=== PATIENT | female | born 1965 | race Caucasian/White ===

== ENCOUNTER → 2016-07-17 | Day surgery (SDC) | payer OTHER ==
[2016-07-12 11:13] VITALS: Ht 155.6 cm; Wt 135.9 kg
[~2016-07-17] VITALS: Ht 155.6 cm; Wt 135.9 kg
[~2016-07-17] MED LIST: ACET-1311 PO; CALC500C70 PO; CHOL400T PO; CITA20TA4 PO; CLR10 PO; HYDR-3126 PO; LIDOCAINE HCL 2% 2 ML VIAL (20MG/ML) ONE; MELO7.5T5 PO; PROPOFOL IV EMULSION 10 MG/ML 20 ML VIAL IV ONE; SODIUM CHLORIDE 0.9% 500ML 500 ML IV ONE; TRMCR130WC EXT
--- NOTE | 2016-07-17 08:38 | Endo History and Physical ---
History & Physical Date of Service: Jul 17, 2016. Chief Complaint: dark stools, abd pain, GERD Referring Physician: Dr. Caryn Palmer History of Present Illness abdominal pain/dark stools/melena Past Medical History Arthritis, Anxiety, Reflux Past Surgical History Hx Cardiac Surgery: No Hx Internal Defibrillator: No Hx Pacemaker: No Hx Abdominal Surgery: Yes (C SECTIONS X 2, RUPAL) Hx of Implantable Prosthesis: No Hx Post-Op Nausea and Vomiting: No Hx Cancer Surgery: No Hx Thoracic Surgery: No Hx Orthopedic: Yes (RT/LEFT CTR, RT PARTIAL SHOULDER REPLACEMENT) Hx Urinary Tract Surgery: No Family History None Social History Smoking Status: Current Every Day Smoker Hx Substance Use: No Hx Alcohol Use: Yes (OCCASIONALLY) Allergies Coded Allergies: Latex1 -Allergic Contact Dermititis (Verified Allergy, Mild, RASH, 07/17/16 ) NO KNOWN DRUG ALLERGIES (Verified Allergy, Unknown, ., 07/12/16) Current Medications Reported Home Medications Medications Dose Route/Sig Max Daily Dose Days Date Category Claritin (Loratadine) 10 Mg Tab 10 Mg PO QAM 07/12/16 Reported Aristocort 0.1% (Triamcinolone Acet) 90 Appln/30 Gm Cr 1 Appln EXT DAILY 07/12/16 Reported Vitamin D (Cholecalciferol) 400 Unit Tab 2 Tab PO QAM 07/12/16 Reported Atarax (Hydroxyzine Hcl) 50 Mg Tab 50 Mg PO DIRECTED PRN 07/12/16 Reported Mobic (Meloxicam) 7.5 Mg Tab 7.5 Mg PO QAM 12/22/14 Reported Tylenol (Acetaminophen) 325 Mg Tab 650 Mg PO PRN 12/16/14 Reported Claritin (Loratadine) 10 Mg Tab 10 Mg PO QAM PRN 12/16/14 Reported Os-Fredi 500 Plus D (Calcium/Vitamin D) Tab 1 Tab PO QAM 12/16/14 Reported Citalopram Hydrobromide 20 Mg Tab 1 Tab PO QAM 90 12/16/14 Reported Vital Signs Weight (Kilograms): 135.91 Height (Feet): 5 Height (Inches): 1.25 Date Time Temp Pulse Resp B/P Pulse Ox O2 Delivery O2 Flow Rate FiO2 07/17/16 08:07 36.8 85 18 144/85 94 Room Air Physical Exam General Appearance: no apparent distress Respiratory/Chest: Auscultation: breath sounds normal Cardiovascular: Heart Auscultation: RRR Abdomen: Inspection & Palpation: soft, no masses Assessment and Plan stable for EGD/[place]
--- NOTE | 2016-07-17 09:39 | GI REPORT ---
Procedure Date: 07/17/2016 8:30 AM Procedure: Upper GI endoscopy Indications: Epigastric abdominal pain, Heartburn, Melena Medicines: See the Anesthesia note for documentation of the administered medications Complications: No immediate complications. Estimated Blood Loss: Estimated blood loss: none. Procedure: Pre-Anesthesia Assessment: - Prior to the procedure, a History and Physical was performed, and patient medications, allergies and sensitivities were reviewed. The patient's tolerance of previous anesthesia was reviewed. - The risks and benefits of the procedure and the sedation options and risks were discussed with the patient. All questions were answered and informed consent was obtained. - Patient identification and proposed procedure were verified prior to the procedure by the physician and the nurse. The procedure was verified in the pre-procedure area. - Pre-procedure physical examination revealed no contraindications to sedation. - After reviewing the risks and benefits, the patient was deemed in satisfactory condition to undergo the procedure. After obtaining informed consent, the endoscope was passed under direct vision. Throughout the procedure, the patient's blood pressure, pulse, and oxygen saturations were monitored continuously. The Scope was introduced through the mouth, and advanced to the third part of duodenum. The upper GI endoscopy was accomplished without difficulty. The patient tolerated the procedure well. Findings: LA Grade A (one or more mucosal breaks less than 5 mm, not extending between tops of 2 mucosal folds) esophagitis was found. The stomach was normal. The examined duodenum was normal. The cardia and gastric fundus were normal on retroflexion. Impression: - Mild reflux esophagitis. - Normal stomach. - Normal examined duodenum. - No specimens collected. Recommendation: - Perform a colonoscopy today. Alfred Regan M.D. Alfred Regan MD 07/17/2016 9:38:21 AM This report has been signed electronically. Note Initiated On: 07/17/2016 8:30 AM I attest to the content of the Intraoperative Record and orders documented therein, exceptions below
--- NOTE | 2016-07-17 09:40 | GI REPORT ---
Procedure Date: 07/17/2016 8:31 AM Procedure: Colonoscopy Indications: Screening for colorectal malignant neoplasm, Incidental - Melena Medicines: See the Anesthesia note for documentation of the administered medications Complications: No immediate complications. Estimated Blood Loss: Estimated blood loss: none. Procedure: Pre-Anesthesia Assessment: - See the other procedure note for documentation of the pre-procedure assessment. After I obtained informed consent, the scope was passed under direct vision. Throughout the procedure, the patient's blood pressure, pulse, and oxygen saturations were monitored continuously. The Scope was introduced through the anus and advanced to the cecum, identified by appendiceal orifice and ileocecal valve. The colonoscopy was performed without difficulty. The patient tolerated the procedure well. The quality of the bowel preparation was good. Findings: The perianal and digital rectal examinations were normal. The entire examined colon appeared normal on direct and retroflexion views. Impression: - The entire examined colon is normal on direct and retroflexion views. - No specimens collected. Recommendation: - Repeat colonoscopy in 10 years for screening purposes. - Discharge patient to home. Alfred Regan M.D. Alfred Regan MD 07/17/2016 9:39:22 AM This report has been signed electronically. Note Initiated On: 07/17/2016 8:31 AM I attest to the content of the Intraoperative Record and orders documented therein, exceptions below
--- NOTE | 2016-07-17 09:42 | Anesthesiology Progress Note ---
Anesthesia Post Op Note Date & Time Jul 17, 2016 at 09:41 Vital Signs Pain Intensity: 3 Vital Signs Past 12 Hours Date Time Temp Pulse Resp B/P Pulse Ox O2 Delivery O2 Flow Rate FiO2 07/17/16 09:38 75 20 142/79 96 Room Air 07/17/16 09:30 136/72 99 Room Air 07/17/16 09:23 81 20 101/70 99 10 07/17/16 08:07 36.8 85 18 144/85 94 Room Air Notes Mental Status: alert / awake / arousable, participated in evaluation Pt Amnestic to Procedure: Yes Nausea / Vomiting: adequately controlled Pain: adequately controlled Airway Patency, RR, SpO2: stable & adequate BP & HR: stable & adequate Hydration State: stable & adequate Anesthetic Complications: no major complications apparent
--- NOTE | 2016-07-17 09:43 | Discharge Instructions ---
Endoscopy Patient Instructions Date / Procedure(s) Performed Jul 17, 2016. Colonoscopy, EGD Allergy Information Coded Allergies: Latex1 -Allergic Contact Dermititis (Verified Allergy, Mild, RASH, 07/17/16 ) NO KNOWN DRUG ALLERGIES (Verified Allergy, Unknown, ., 07/12/16) Discharge Date / Findings Jul 17, 2016. Mild reflux disease Medication Instructions Stopped Medication(s): Patient was told she could take one of her meds but she couldn't remember so she didn't take any of them. Provider Instructions Activity Restrictions - No exercising or heavy lifting for 24 hours. - Do not drink alcohol the day of the procedure. - Do not drive a car or operate machinery until the day after the procedure. - Do not make any important decisions or sign important papers in 24 hours after the procedure. Following Day: - Return to full activity which may include returning to work/school. Diet Start your diet with liquids and light foods (jello, soup, juice, toast). Then eat your usual diet if not nauseated. Treatment For Common After Affects For mild abdominal pain, bloating, or excessive gas: - Rest - Eat lightly - Lie on right side Follow-Up Information Follow-up with Dr. Caryn Palmer as scheduled Anesthesia Information What You Should Know You have had a procedure that required some medicine to reduce anxiety and discomfort. This treatment is called moderate sedation. After receiving the treatment, you may be sleepy, but you will be able to breathe on your own. The effects of the treatment may last for several hours. Follow these instructions along with Activity/Diet recommendations noted above: * Do NOT do anything where dizziness or clumsiness would be dangerous. * Rest quietly at home today, then you can be up and about tomorrow. * Have a responsible person stay with you the rest of today. * You may have had an I.V. today. If so, you may take the dressing off later today. Recommendations Call your doctor if: * Trouble breathing * Continuous vomiting for more than 24 hours * Temperature above 101 degrees * Severe abdominal pain or bloating * Pain not relieved by pain medicine ordered * There is increased drainage or redness from any incision * A large amount of rectal bleeding greater than 2-3 tablespoons. (If you had a polyp/s removed or have hemorrhoids, a small amount of blood - from the rectum is to be expected.) * You have any unanswered questions or concerns. IN THE EVENT OF A SERIOUS EMERGENCY, GO TO THE NEAREST EMERGENCY ROOM Your discharge instructions were prepared by provider Alfred Regan. Patient Instructions Signature Page Leandra Lamar Patient (or Guardian) Signature/Date: I have read and understand the instructions given to me by my caregivers. Caregiver/RN/Doctor Signature/Date: The above-named patient and/or guardian has received patient instructions on this date. + Original Patient Signature Page (only) stays with chart. Please make copy for patient.
[2016-07-17 10:05] VITALS: BP 156/90; PULSE 75; O2SAT 97
== END | disposition home or self-care (01) ==
LOC: C.GI 07:31
PROVIDERS: ATTEND Internal Medicine Gastroenterology
DX: Z12.11 Encounter for screening for malignant neoplasm of colon (principal); R10.13 Epigastric pain; R12 Heartburn; K21.9 Gastro-esophageal reflux disease without esophagitis; F17.200 Nicotine dependence, unspecified, uncomplicated; K92.1 Melena; K20.9 Esophagitis, unspecified

== ENCOUNTER → 2016-10-15 | Outpatient (CLI) | payer OTHER ==
[~2016-10-15] MED LIST changes: -LIDOCAINE HCL 2% 2 ML VIAL (20MG/ML) ONE; -PROPOFOL IV EMULSION 10 MG/ML 20 ML VIAL IV ONE; -SODIUM CHLORIDE 0.9% 500ML 500 ML IV ONE
--- NOTE | 2016-10-16 05:39 | PAP/PSG TECHNICIAN REPORT ---
[facility] Public Health Policy Analyst Polysomnogram Report Study name: None Report date: 10/16/2016 Study date: 10/15/2016 Referring Physician: Antonette Whitley M.D. Name: DAMIEN LAMAR Interpreting Physician: Kiara Whitley M.D. Date of : 1965 Public Health Policy Analyst: EVELYN Cooper. Sex: Female Age: 51 StudyType: PSG Weight: 307 lbs Height: 51 years, Height 5' 2" Neck Circum:17.5inches BMI: 56.14 Medications: Meloxicam 15mg, Celexa 20mg, Atarax 10mg, Tylenol 325mg, Vit D 400units, Loratadine 10mg Patient History Study started on room air with ETCO2 monitoring in room #8. 51 yr old female here tonight for a possible split psg. She has a history of JOSELINE. She had a psg done in 2008 that had an AHI of 5.1 She was not treated. She has gained about 25 pounds since then and is snoring loudly. She falls asleep at inappropriate times and never feels rested. Her ESS=18/24.Neck Circ=17.5inches She started with a URI of last week (10-11-16) and she has been coughing and wheezing. Parameters Monitored NPSG: E1-M2, E2-M1, Fp1-M2, Fp2-M1, F3-M2, F4-M2, F4-M1, C3-M2, C4-M2, C4-M1, O1-M2, O2-M2, O2-M1, T3-M2, T4-M1, P3-M2, P4-M1, CHIN1, CHIN2, HR, EKG, Legs, PFLOW, SNOR, FLOW, CFLOW, Tidal Volume, THOR, ABDO, SpO2, PLTH, CPRESS, ETCO2 Wave, ETCO2, pH Sleep Architecture Sleep Stages Time at Lights Off 9:35:46 PM STAGES Time (min.) TST (%) Time at Lights On 5:29:16 AM Wake 83.0 -- Total Recording Time (TRT) 473.00 min. N1 13.5 3 Total Sleep Period (TSP) 444.5 min. N2 227.0 58 Total Sleep Time (TST) 390.0min. N3 99.5 26 Awake Time 83.0 min. REM 50.0 13 Wake after Sleep Onset 54.5 min. Sleep Efficiency (SE) 82 % Sleep Onset Latency (SHINE) 29.0 min. Number of Stage 1 Shifts None Awakenings 4 Stage Changes 58 Number of REM periods 5 REM 50.0 13 REM Latency 287.0 min. NREM 340.0 87 Body Position Analysis Supine Right Left Side Prone Vertical Total Sleep Time (min.) 27.3 383.0 7.0 390.00 0.0 0.0 Total Sleep Time (%) 0% 98% 2% 100 0% N/A% Total Sleep Time REM (min.) 0.0 50.0 0.0 None 0.0 0.0 Total Sleep Time NREM (min.) 0.0 333.0 7.0 None 0.0 0.0 Intermittent Wake (min.) 27.3 51.7 4.0 None 0.0 0.0 Total Sleep Period (%) 0% None None None None None Arousals Myoclonus (PLM) * Events Count Index Events Count Index Spontaneous 12 2 Events Awake (PLMW) 73 52.8 Respiratory 9 1.4 Events Asleep w/ Arousal (PLMA) 15 2.3 PLM 15 2 Events Asleep w/o Arousal (PLMS) 130 20.0 Snoring 10 2 Total Asleep 145 22.3 Total 46 7 Total 218 28 Respiratory Analysis * CA OA MA CH H RERA Total Count 0 1 0 0 88 0 89 Index 0.0 0.2 0.0 0 13.5 0 13.7 Mean Duration 0.0 10.2 0.0 0.00 15.3 0.0 15.3 Longest Duration 0.0 10.2 0.0 0.00 0.0 0.0 49.7 Respiratory Event Summary Total Supine ~Supine Right Left Prone REM NREM Apneas Count 1 N/A 1 1 0 N/A 1 0 Index 0.2 N/A 0 0.2 0.0 N/A 1 0 Hypopneas (4% Desat) Count 88 N/A 88 88 0 N/A 38 50 Index 13.5 N/A 14 13.8 0.0 N/A 45.6 8.8 Apneas & All Hypopneas Count 89 N/A 89 89 0 N/A 39 50 Index 13.7 N/A 14 14 0 N/A 46.8 8.8 Respiratory Events (Funeral Pre Arrangement Counselor+All Hyp+RERA) Count 89 N/A 89 89 0 N/A 39 50 Index 13.7 N/A 14 13.9 0.0 N/A 46.8 8.8 Respiratory Related Arousal Count 9 N/A 9 9 0 N/A 5 4 Index 1.4 N/A 1 1 0 N/A 6 1 Snoring Analysis Supine Right Left Prone REM NREM Total Snore duration 16.0 min Snores count N/A 905 6 N/A 157 754 911 Snore mean duration 1.1 Sec Snores index N/A 142 51 N/A 188.4 133.1 140.2 TST with snoring (%) 4.1% SpO2 Analysis Total REM NREM Awake <50% 0.0 min. 0.0 min. 0.0 min. 0.0 min. 51 - 60% 0.0 min. 0.0 min. 0.0 min. 0.0 min. 61 - 70% 1.1 min. 0.8 min. 0.3 min. 0.0 min. 71 - 80% 23.0 min. 22.4 min. 0.6 min. 0.0 min. 81 - 90% 421.1 min. 26.7 min. 335.0 min. 59.4 min. 91 - 100% 2.3 min. 0.0 min. 0.3 min. 2.1 min. Average 86 81 86 87 Minimum SpO2 63 63 69 81 Desaturation Event Index 24.7 93.6 19.4 6.5 # Desat. Events below 89% 195 77 109 9 Time(%) with Saturation below 89% 95.2 11.1 74.3 9.8 Time(min.) with Saturation below 89% 426.0 49.8 332.4 43.8 Heart Rate Analysis End Tidal CO2 Analysis Min (bpm) Max (bpm) Average (bpm) TSP (mins) % of TSP Awake 66 145 84 Above 55 mmHg 2.9 0.7 NREM 68 107 84 50-55 mmHg 130.3 33.4 REM 70 94 81 45-50 mmHg 190.4 48.8 Overall 68 107 83 40-45 mmHg 19.2 4.9 35-40 mmHg 12.3 3.2 30-35 mmHg 18.1 4.6 Average ETCO2 0.0 Supplemental O2 Values Minimum O2 level: None Value Start Time End Time Public Health Policy Analyst Comments Ms. Lamar slept in the right, left and supine positions. No cardiac arrhythmia noted. PLM's noted. No bruxism noted. Snoring was noted and scored as a 5 on a scale of 1 through 5. (0=no snoring, 5=snoring loud enough to be heard through a closed door or down the hooper way) She awoke to use the restroom 1 time during the night. She stated that she slept about the same as when at home. The final report will be interpreted and signed by a sleep physician. The completed physician report will then be placed in the patient medical record. Therapy (cm H2O) 0 TIB (min.) 473.0 TST (min.) 390.0 Sleep Onset (min.) 29.0 REM Onset From Sleep (min.) 287.0 Sleep Efficiency % 82 Wakefulness (%) 18 Wakefulness (min.) 83.0 NREM 1 (%) 3 NREM 1 (min.) 13.5 NREM 2 (%) 58 NREM 2 (min.) 227.0 NREM 3 (%) 26 NREM 3 (min.) 99.5 REM (%) 13 REM (min.) 50.0 # Arousals 46 Arousal Index 7 # Snore 911 Snore Index 140.2 AHI 13.7 AHI Supine N/A AHI Non-Supine 14 NREM AHI 8.8 REM AHI 46.8 RDI 13.7 # Obstructive Apnea 1 # Central Apnea 0 # Mixed Apnea 0 # Hypopneas 88 RERAs 0 Total Respiratory Events 92 Time Below SpO2 89% (min.) 382.2 Mean NREM SpO2 (%) 86 Mean REM SpO2 (%) 81 Mean Sleep SpO2 (%) 85 Min NREM SpO2 (%) 69 Min REM SpO2 (%) 63 Position Supine (min.) 27.3 Position Non-supine (min.) 390.0 LM Index Sleep 22.3 LM Index NREM 22.6 LM Index REM 20.4 Mean Heart Rate (bpm) 83 Min Heart Rate (bpm) 68
--- NOTE | 2016-11-06 09:56 | POLYSOMNOGRAPH REPORT ---
REFERRING PERSON: Dr. Ryan Whitley. REAL ESTATE PORTFOLIO MANAGER: Ana Oseguera. Ms. Lamra is a 51-year-old female sent for baseline sleep study, possible split night sleep study. This test will be performed with an end-tidal CO2 to monitor her for obesity hypoventilation. She has a history of obstructive sleep apnea with PSG done in 2008, which showed an AHI of 5.1. She was not treated at that time and has gained 25 pounds since then. She does snore loudly. She falls asleep when idle and never feels rested. Her [place] sleepiness scale score on the evening of this study is 18. BMI is a 56.14. Following the technical and digital specifications of the [employer] (AASM) a standard diagnostic polysomnogram was performed monitoring EEG, EOG, EMG (chin and leg deviations), oxygen saturation, body position, digital video, respiratory effort and airflow. The sleep Stage and event scoring was based on the AASM Manual for the Scoring of Sleep and Associated Events 2007 edition. Apneas are defined as a drop in the peak thermal sensor excursion by >90% of baseline for at least 10 seconds. Hypopneas were scored using the 4% oxygen desaturation rule (4A-Medic[employer]) and a decrease in the nasal pressure excursions by >30% of baseline for at least 10 seconds. Respiratory effort-related arousal (RERA's) is defined as a sequence of breaths lasting at least 10 seconds characterized by increasing respiratory effort or flattening of the nasal pressure waveform leading to an arousal from sleep when the sequence of breaths does not meet criteria for an apnea or hypopnea. Apnea Hypopnea index (AHI) is defined as the number of apneas and hypopneas occurring in an hour of sleep. Respiratory disturbance index (RDI) is defined as the number of apneas, hypopneas, and RERA's occurring in an hour of sleep. Ms. Lamar's total sleep period time was 444.5 minutes. Total sleep time was 390 minutes. Sleep efficiency was 82%. Latency to sleep onset was 29 minutes with wake after sleep onset of 54.5 minutes. Total non-REM sleep time was 340 minutes. She spent 3% of that time in N1 sleep, 58% in N2 sleep and 26% in N3 sleep. REM latency was 287 minutes. Total REM sleep time was 50 minutes or 13% of total sleep time. There were 46 cortical arousals from sleep. Twelve of these arousals were spontaneous, 9 were due to respiratory events, 15 due to periodic limb movements of sleep and 10 were due to snoring. There were 145 periodic limb movements of sleep noted on this test. Limb movement index was 22.3. Limb movement with arousal index was 2.3. There were no central, 1 obstructive and no mixed apnea on this test. There were 88 hypopneas and no RERA. Apnea-hypopnea index was 13.7 consistent with mild sleep apnea. There was no supine sleep on this test. REM AHI was 46.8. 911 snoring events were recorded. Total sleep time with snoring was 4.1%. Mean saturation was low at 86%. Desaturations occurred to 63% with a respiratory event on this test. Saturations were less than 89 for 426 minutes of recorded time. This is very significant nocturnal hypoxemia. There was no cardiac ectopy noted on this study. During sleep, heart rates ranged from a low of 68 beats per minute to a high of 107 beats per minute. End-tidal CO2 was recorded on this test. End tidal CO2s were between 50 and 55 mmHg for 33.4% of total sleep period time, between 45 and 50 mmHg for 48.8%, between 40 and 45 mmHg for 4.9%, between 35 and 40 mmHg for 3.2% and between 30 and 35 mmHg for 4.6% of total sleep period time. IMPRESSION AND PLAN: Ms. Lamar is a 51-year-old female with evidence of mild sleep apnea with very significant nocturnal hypoxemia on this sleep study. 1. This patient would likely benefit from positive airway pressure therapy. She should return to the sleep lab for a full night titration and then based on those results be started on equipment at home. A download from her machine can be reviewed in 1 month both to check compliance as well as AHI and further pressure adjustments can occur at that time. This patient may require nocturnal oxygen in addition to positive airway pressure therapy to correct her hypoxemia.
== END | disposition home or self-care (01) ==
LOC: C.NEUR 21:00
PROVIDERS: ATTEND Family Medicine
DX: G47.33 Obstructive sleep apnea (adult) (pediatric) (principal); E66.01 Morbid (severe) obesity due to excess calories

== ENCOUNTER → 2017-05-16 | Outpatient (CLI) | payer OTHER | END | disposition home or self-care (01) | LOC: C.PAPS 11:51 | PROVIDERS: ATTEND Obstetrics & Gynecology | DX: Z01.419 Encounter for gynecological examination (general) (routine) without abnormal findings (principal) ==

== ENCOUNTER 2019-04-04 19:17 | Observation (INO) ==
[2019-04-04] MEDS ORDERED: ASPIRIN CHEW 324 MG PO STA (19:30)
[2019-04-04 19:45] LABS: Basophils # (auto) 0.03 K/uL (0-0.2); Basophils % (auto) 0.2 %; Eosinophils # (auto) 0.15 K/uL (0-0.5); Eosinophils % (auto) 0.9 %; Hematocrit (blood only) 40.5 % (37-47); Hemoglobin 12.8 g/dL (12.0-16.0); Immature Granulocytes # (auto) 0.07 K/uL (0.00-0.02); Immature Granulocytes % (auto) 0.4 %; Lymphocytes # (auto) 3.52 K/uL (1.2-3.4); Lymphocytes % (auto) 21.3 %; Mean Corpuscular Hgb Conc 31.6 g/dL (32-36); Mean Corpuscular Volume 95.1 fL (80-100); Mean Platelet Volume 9.4 fL (7.4-10.4); Monocytes # (auto) 1.13 K/uL (0.11-0.59); Monocytes % (auto) 6.9 %; Neutrophils # (auto) 11.59 K/uL (1.4-6.5); Neutrophils % (auto) 70.3 %; Platelet Count 222 K/uL (130-400); RDW Coefficient of Variation 13.1 % (11.5-14.5); Red Blood Count 4.26 M/uL (4.2-5.4); White Blood Count 16.49 K/uL (4.8-10.8)
[2019-04-04 19:58] LABS: D Dimer 390 ug/L FEU (0-500); Partial Thromboplastin Time 26.7 Seconds (21.0-31.0); Prothrombin Time 10.3 Seconds (9.0-12.0)
[2019-04-04 20:08] LABS: Alanine Aminotransferase 15 U/L (12-78); Albumin Level 3.1 gm/dl (3.4-5.0); Aspartate Aminotransferase 15 U/L (15-37); BUN Creatinine Ratio 10.9 (10-20); Bilirubin Direct < 0.1 mg/dl (0-0.2); Blood Urea Nitrogen 9 mg/dl (7-18); Calcium 8.6 mg/dl (8.5-10.1); Carbon Dioxide 28 mmol/L (21-32); Chloride 109 mmol/L (98-107); Creatinine Clr Calc Pharmacy 105.4 ml/min; Est GFR (African American) 96.1; Est GFR (Non-African American) 82.9; Glucose 102 mg/dl (70-99); Lipase 151 U/L (73-393); Potassium 3.7 mmol/L (3.5-5.1); Sodium 140 mmol/L (136-145)
[2019-04-04 20:13] LABS: Alkaline Phosphatase 94 U/L (45-117); Bilirubin,Total 0.2 mg/dl (0.2-1); Total Protein 7.3 gm/dl (6.4-8.2); Troponin I < 0.015 ng/ml (0-0.045)
--- NOTE | 2019-04-04 20:21 | XRay Report ---
CHEST AND ABDOMEN 2 VIEWS HISTORY: epigastric pain COMPARISON: Chest 01/06/2015. FINDINGS: No new focal lung consolidations to suggest pneumonia. No evidence for pulmonary edema. The heart remains mildly enlarged. No pleural effusions. No pneumothorax. A right shoulder prosthesis is again noted. Increased markings within the right medial lung base likely represents vascular crowdin g. Prior cholecystectomy. No pneumoperitoneum. No pneumatosis. No renal or ureteral calculi. The nick l gas pattern is unremarkable. No dilated loops of bowel to suggest an obstruction. IMPRESSION: 1. Stable mild cardiomegaly. 2. Unremarkable bowel gas pattern. No evidence for bowel obstruction. ACT 112: Negative or not required by law. Electronically signed by: Sebastian Wills M.D. 04/04/2019 8:20 PM
--- NOTE | 2019-04-04 21:27 | Emergency Department Note ---
Entered by Sheryl Stanley acting as a scribe for Adán Lamb History of Present Illness General Chief complaint: Chest Pain Stated complaint: CHEST PAIN Time Seen by Provider: 04/04/19 19:23 History of Present Illness Provider complaint: chest pain Onset (ago): day(s) 1 Location: chest Radiation: non-radiation Pain Consistency: + intermittent Maximum Pain Intensity: 4 Current Pain Intensity: 2 Relieved By: + other (lying down) Exacerbated By: + other (stress) Associated symptoms: + denies other symptoms (recent travel, recent surgeries, hormone pill/cream use) and + other (feels like anxiety); no shortness of breath The patient is a 53 year old female who presents to the ED with complaints of intermittent chest pain that started 1 day ago. The patient states that the pain is in the middle of her chest and it is non-radiating. The patient rates her current pain as a 2/10. The patient states that when she had this pain yesterday, it resolved after lying down. The patient states that the pain returned today after a stressful phone call. The patient states that her discomfort feels similar to anxiety. The patient notes that she is a smoker, but she denies shortness of breath, recent travel, recent surgeries and hormone pill/cream use. The patient notes that she also has right rib cramping that sta rted 1 week ago. Home Medications Home Medications Medication Instructions Recorded Confirmed Type calcium carbonate 600 mg (1,500 1 tab PO QAM tab 01/04/19 04/04/19 History mg)-vitamin D3 200 unit tablet BiPap Machine #1 ea 01/29/19 03/17/19 History cholecalciferol (vitamin D3) 1,000 unit PO QAM 02/06/19 04/04/19 History [Vitamin D3] hydroxyzine HCl 10 mg PO QID PRN 02/06/19 04/04/19 History meloxicam 15 mg PO QAM 02/06/19 04/04/19 History citalopram 40 mg PO DAILY 04/04/19 04/04/19 History modafinil 200 mg PO DAILY PRN 04/04/19 04/04/19 History Allergies Allergy/AdvReac Type Severity Reaction Status Date / Time latex Allergy Mild RASH Verified 04/04/19 19:52 No Known Drug Allergies Allergy Unknown . Verified 04/04/19 19:52 Past Med/Surg History Medical History (Updated 04/04/19 @ 21:24 by Sheryl Stanley) Abnormal vaginal bleeding Anxiety Arthritis Depression (Acute) DJD (degenerative joint disease) (Chronic) Fatigue (Acute) History of postmenopausal bleeding (Acute) Morbid obesity Secondary amenorrhea (Acute) Sleep apnea BIPAP Tobacco abuse (Chronic) Surgical History (Updated 04/04/19 @ 20:11 by Sheryl Stanley) History of (Resolved) History of carpal tunnel release of both wrists History of carpal tunnel surgery (Chronic) Hx of section X2 Hx of cholecystectomy (Resolved) Hx of cholecystectomy Hx of colonoscopy Hx of shoulder surgery Right shoulder arthroplasty (partial): 01/06/15: Grade I view, MAC#3, ETT 7.5 at [facility] Social History (Updated 03/14/19 @ 10:29 by Fabiola Rios) Preferred Language: Lithuanian Communication Ability: Effective Beliefs That Will Affect Care: None marital status: Current Living Situation: Family Current Living Situation Comment: DAUGHTER HAS DISABILITY - DOWNS SYNDROME Feels Safe at Home: Yes Smoking Status: Never smoker Tobacco Type: cigarettes ; Cigarettes Per Day: 1 PPD X 30 YEARS ; Second Hand Exposure: Yes (OCCASSIONALLY) ; Hx Alcohol Use: Yes Hx Substance Use: No Review of Systems See HPI for pertinent positives & negatives. and A total of 10 systems reviewed and were otherwise negative Physical Exam Vital Signs Vital Signs - 24 hr 04/04/19 19:19 04/04/19 19:28 04/04/19 19:30 Temperature 36.7 C Temperature Source Oral Pulse Rate 80 75 72 Pulse Rate from SpO2 Sensor Respiratory Rate 16 22 24 Respiratory Effort / Characteristics Non-Labored Spontaneous Respiratory Depth Normal Respiratory Pattern Regular Blood Pressure 153/88 H Blood Pressure Mean 109 Blood Pressure Position Sitting Pulse Oximetry 95 Oxygen Delivery Method Room Air Sepsis Recent Fever Within 48 Hours No Sepsis Action Taken by Nursing No Action Required 04/04/19 19:40 04/04/19 19:50 04/04/19 19:59 Temperature Temperature Source Pulse Rate 71 71 Pulse Rate from SpO2 Sensor Respiratory Rate 21 22 Respiratory Effort / Characteristics Respiratory Depth Respiratory Pattern Blood Pressure Blood Pressure Mean Blood Pressure Position Pulse Oximetry 97 Oxygen Delivery Method Room Air Sepsis Recent Fever Within 48 Hours Sepsis Action Taken by Nursing 04/04/19 20:13 04/04/19 20:14 04/04/19 20:20 Temperature Temperature Source Pulse Rate 63 64 65 Pulse Rate from SpO2 Sensor 65 65 Respiratory Rate 20 22 24 Respiratory Effort / Characteristics Respiratory Depth Respiratory Pattern Blood Pressure 126/65 Blood Pressure Mean 84 Blood Pressure Position Pulse Oximetry 96 96 Oxygen Delivery Method Sepsis Recent Fever Within 48 Hours Sepsis Action Taken by Nursing 04/04/19 20:30 04/04/19 20:31 04/04/19 20:40 Temperature Temperature Source Pulse Rate 67 64 66 Pulse Rate from SpO2 Sensor 67 66 64 Respiratory Rate 14 18 18 Respiratory Effort / Characteristics Respiratory Depth Respiratory Pattern Blood Pressure 142/91 H Blood Pressure Mean 123 Blood Pressure Position Pulse Oximetry 97 96 96 Oxygen Delivery Method Sepsis Recent Fever Within 48 Hours Sepsis Action Taken by Nursing 04/04/19 20:50 Temperature Temperature Source Pulse Rate 64 Pulse Rate from SpO2 Sensor 64 Respiratory Rate 16 Respiratory Effort / Characteristics Respiratory Depth Respiratory Pattern Blood Pressure Blood Pressure Mean Blood Pressure Position Pulse Oximetry 96 Oxygen Delivery Method Sepsis Recent Fever Within 48 Hours Sepsis Action Taken by Nursing GENERAL: She is oriented to person, place, and time. She appears well-developed and well-nourished. She does not appear distressed. The patient is obese. HENT: Exam performed. -Head: Normocephalic and atraumatic. -Right Ear: External ear normal. No mastoid tenderness. -Left Ear: External ear normal. No mastoid tenderness. -Mouth/Throat: The oropharynx is clear and moist. No trismus in the jaw. No dental abscesses or uvula swelling. No oropharyngeal exudate or tonsillar abscesses. EYES: Conjunctivae and EOM are normal. Pupils are equal, round, and reactive to light. Right eye exhibits no discharge. Left eye exhibits no discharge. No scleral icterus. NECK: Normal range of motion. Neck supple. No JVD present. No spinous process tenderness present. No carotid bruit present. No rigidity. No tracheal deviation and normal range of motion present. No Brudzinski's sign and no Kernig's sign noted. CV: Normal rate, regular rhythm, normal heart sounds and intact distal pulses. There is no peripheral edema. Palpable radial pulses bue. PULM/CHEST: Effort normal and breath sounds normal. No respiratory distress. No stridor. She has no wheezes. She has no rales. Chest Wall: She exhibits no tenderness. ABD: Pain to palpation of epigastric region. The abdomen is soft. Bowel sounds are normal. She has no distension. No mass is present. There is no rebound, no guarding, no Hollingsworth's sign and no tenderness at McBurney's point. Rovsig negative MUSC/SKEL: Normal range of motion. There is no peripheral edema, tenderness or deformity. LYMPH: No cervical adenopathy. NEURO: She is alert and oriented to person, place, and time. She has normal strength. No cranial nerve deficit or sensory deficit. Coordination and gait normal. GCS eye subscore is 4. GCS verbal subscore is 5. GCS motor subscore is 6. cerbellar tests wnl. SKIN: Skin is warm and dry. She is not diaphoretic. PSYCH: She has a normal mood and affect. Her behavior is normal. Judgment and thought content normal. Course Course 1924: Past medical records reviewed. The patient was evaluated in room C05. A complete history and physical exam was performed. 2108: Vital signs stable. Labs show leukocytosis of 16. Troponin, D-dimer and ac aisha abdominal series are negative. Repeat abdominal exam shows no pain to palpation. Patiently currently reporting no chest pain. I offered inpatient observation for a repeat troponin or discharge. They opted for inpatient observation because of the patients age, weight and smoking history. I dis cussed the patient's case with Dr. Leon Dee. He will evaluate the patient for further management. Consultations Consultation #1: I discussed the patient's case with Dr. Leon Dee. He will evaluate the patient for further management. Time: 21:15 Administered Medications Discontinued Medications Aspirin (Aspirin) 324 mg PO NOW STA Stop: 04/04/19 19:31 Last Admin: 04/04/19 19:42 Dose: 324 mg Documented by: [id number] Medical Decision Making Medical Records Attestation: I reviewed the patient's medical records. Home Medications Current Medication List: was personally reviewed by me Laboratory Data Attestation: I reviewed the patient's lab results. Result diagrams: 04/04/19 19:35 04/04/19 19:35 Lab Results 04/04/19 04/04/19 04/04/19 Range/Units 19:35 19:35 19:35 WBC 16.49 H (4.8-10.8) K/uL RBC 4.26 (4.2-5.4) M/uL Hgb 12.8 (12.0-16.0) g/dL Hct 40.5 (37-47) % MCV 95.1 (80-100) fL MCH 30.0 (25-34) pg MCHC 31.6 L (32-36) g/dL RDW Std Deviation 45.0 (36.4-46.3) fL RDW Coeff of Susanne 13.1 (11.5-14.5) % Plt Count 222 (130-400) K/uL MPV 9.4 (7.4-10.4) fL Immature Gran % (Auto) 0.4 % Neut % (Auto) 70.3 % Lymph % (Auto) 21.3 % [place] % (Auto) 6.9 % Eos % (Auto) 0.9 % Baso % (Auto) 0.2 % Immature Gran # (Auto) 0.07 H (0.00-0.02) K/uL Neut # (Auto) 11.59 H (1.4-6.5) K/uL Lymph # (Auto) 3.52 H (1.2-3.4) K/uL [place] # (Auto) 1.13 H (0.11-0.59) K/uL Eos # (Auto) 0.15 (0-0.5) K/uL Baso # (Auto) 0.03 (0-0.2) K/uL PT 10.3 (9.0-12.0) Seconds INR 1.0 (0.9-1.1) APTT 26.7 (21.0-31.0) Seconds PTT Ratio 1.0 D-Dimer 390 (0-500) ug/L FEU Sodium 140 (136-145) mmol/L Potassium 3.7 (3.5-5.1) mmol/L Chloride 109 H (98-107) mmol/L Carbon Dioxide 28 (21-32) mmol/L Anion Gap 4.0 (3-11) BUN 9 (7-18) mg/dl Creatinine 0.81 (0.6-1.2) mg/dl Est Cr Clr Drug Dosing 105.4 ml/min Est GFR ( Amer) 96.1 Est GFR (Non-Af Amer) 82.9 BUN/Creatinine Ratio 10.9 (10-20) Glucose 102 H (70-99) mg/dl Calcium 8.6 (8.5-10.1) mg/dl Total Bilirubin 0.2 (0.2-1) mg/dl Direct Bilirubin < 0.1 (0-0.2) mg/dl AST 15 (15-37) U/L ALT 15 (12-78) U/L Alkaline Phosphatase 94 (45-117) U/L Troponin I < 0.015 (0-0.045) ng/ml Total Protein 7.3 (6.4-8.2) gm/dl Albumin 3.1 L (3.4-5.0) gm/dl Lipase 151 (73-393) U/L Imaging Data Radiologist's Impression: Radiology results as stated below per my review and the radiologist's interpretation: CHEST AND ABDOMEN 2 VIEWS HISTORY: epigastric pain COMPARISON: Chest 01/06/2015. FINDINGS: No new focal lung consolidations to suggest pneumonia. No evidence for pulmonary edema. The heart remains mildly enlarged. No pleural effusions. No pneumothorax. A right shoulder prosthesis is again noted. Increased markings within the right medial lung base likely represents vascular crowding. Prior cholecystectomy. No pneumoperitoneum. No pneumatosis. No renal or ureteral calculi. The bowel gas pattern is unremarkable. No dilated loops of bowel to suggest an obstruction. IMPRESSION: 1. Stable mild cardiomegaly. 2. Unremarkable bowel gas pattern. No evidence for bowel obstruction. ACT 112: Negative or not required by law. Electronically signed by: Sebastian Wills M.D. 04/04/2019 8:20 PM ECG Data Attestation: I personally reviewed and interpreted this ECG as follows: Indication: + chest pain Rate (beats per minute): 71 Rhythm: + sinus rhythm ECG Intervals/blocks: + Normal QRS, + Normal MO and + Normal QT-c ECG ST segments: no ST depression and no ST elevation Blood Pressure Blood Pressure Findings: Elevated blood pressure Blood Pressure Disposition: further management by hospitalist [facility] Narrative Vital signs stable. Labs show leukocytosis of 16. Troponin, D-dimer and acute abdominal series are negative. Repeat abdominal exam shows no pain to palpation. Patiently currently reporting no chest pain. I offered inpatient observation for a repeat troponin or discharge. They opted for inpatient observation because of the patients age, weight and smoking history. I discussed the patient's case with Dr. Leon Quintana Hospitalist. He will evaluate the patient for further management. Impression & Plan Chest pain Discharge Plan Visit Data Chief Complaint: Chest Pain Stated Complaint: CHEST PAIN ED Provider: Adán Lamb Discharge Problem: Chest pain Patient Disposition: Being Evaluated by Hospitalist Forms Stand Alone Forms: Call Back Authorization, My [facility] Prescriptions Prescriptions: No Action calcium carbonate-vitamin D3 600 mg(1,500mg) -200 unit tablet 1 tab PO QAM RF: 0 (DME) BiPap Machine Misc See Dose Instructions .ROUTE .MEDSUPPLY Qty: 1 RF: 0 cholecalciferol (vitamin D3) [Vitamin D3] 1,000 unit Capsule 1,000 unit PO QAM RF: 0 meloxicam 15 mg Tablet 15 mg PO QAM RF: 0 hydroxyzine HCl 10 mg Tablet 10 mg PO QID PRN (Reason: Itching) RF: 0 citalopram 40 mg tablet 40 mg PO DAILY RF: 0 modafinil 200 mg tablet 200 mg PO DAILY PRN (Reason: Daylight Sleepiness Symptoms) RF: 0 Referrals Referrals: Caryn Palmer, [Primary Care Provider] - Discharge Problem: Chest pain Qualifiers: Chest pain type: unspecified Qualified Code(s): R07.9 - Chest pain, unspecified The scribe's documentation has been prepared under my direction and personally reviewed by me in its entirety. I confirm that the note above accurately reflects all work, treatment, procedures, and medical decision making performed by me.
[2019-04-04] MEDS ORDERED: NITROGLYCERIN SL 0.4 MG/TAB TAB SL STA (21:54)
--- NOTE | 2019-04-04 21:55 | History & Physical Report ---
Date of Service April 04, 2019 Assessment & Plan (1) Chest pain: With nitro relief Rule out ACS OHS on BiPAP GERD stable on regimen anxiety/mood disorder, anxiety somewhat worsened of late with work stress ongoing tobacco abuse OBS PCU Follow troponin TTE, Cardiology consult in a.m. RE chest pain relieved by nitro Aspirin for CAD prevention until ACS ruled out Anxiolytic PRN nicotine patch PRN DVT prophylaxis. Lovenox subcu Full code History of Present Illness Chief Complaint: Chest pain Primary Care Provider: Caryn Palmer DO History obtained from patient and records. Medical history significant for OHS on BiPAP, GERD, anxiety/mood disorder, ongoing tobacco abuse. Recent confinement under orthopedic service December 2014 for right shoulder surgery. 2 days history of substernal discomfort described as heaviness with some shortness of breath, nonpleuritic, dry cough symptoms. No radiation. Intermittent symptoms. Not related to exertion as per patient. Patient admits to some work stress more than usual. At the ER, some improvement of discomfort with nitro administration. Medical History as above Surgical History : Carpal tunnel surgery, cholecystectomy, shoulder surgery, section Family History : Heart disease, Down syndrome Personal/Social history : 1 pack daily, occasional EtOH intake, office work Allergies Allergy/AdvReac Type Severity Reaction Status Date / Time latex Allergy Mild RASH Verified 04/04/19 19:52 No Known Drug Allergies Allergy Unknown . Verified 04/04/19 19:52 Home Medications Home Medications Medication Instructions Recorded Confirmed Type calcium carbonate 600 mg (1,500 1 tab PO QAM tab 01/04/19 04/04/19 History mg)-vitamin D3 200 unit tablet BiPap Machine #1 ea 01/29/19 03/17/19 History cholecalciferol (vitamin D3) 1,000 unit PO QAM 02/06/19 04/04/19 History [Vitamin D3] hydroxyzine HCl 10 mg PO QID PRN 02/06/19 04/04/19 History meloxicam 15 mg PO QAM 02/06/19 04/04/19 History citalopram 40 mg PO DAILY 04/04/19 04/04/19 History modafinil 200 mg PO DAILY PRN 04/04/19 04/04/19 History Past Med/Surg History Medical History (Updated 04/04/19 @ 21:24 by Sheryl Stanley) Abnormal vaginal bleeding Anxiety Arthritis Depression (Acute) DJD (degenerative joint disease) (Chronic) Fatigue (Acute) History of postmenopausal bleeding (Acute) Morbid obesity Secondary amenorrhea (Acute) Sleep apnea BIPAP Tobacco abuse (Chronic) Surgical History (Updated 04/04/19 @ 20:11 by Sheryl Stanley) History of (Resolved) History of carpal tunnel release of both wrists History of carpal tunnel surgery (Chronic) Hx of section X2 Hx of cholecystectomy (Resolved) Hx of cholecystectomy Hx of colonoscopy Hx of shoulder surgery Right shoulder arthroplasty (partial): 01/06/15: Grade I view, MAC#3, ETT 7.5 at [facility] Social History (Updated 03/14/19 @ 10:29 by Fabiola Rios) Preferred Language: Telugu Communication Ability: Effective Social Media Specialist Required: No Beliefs That Will Affect Care: None marital status: Current Living Situation: Family Current Living Situation Comment: DAUGHTER HAS DISABILITY - DOWNS SYNDROME Other Information That Helps Us Care for You: No Feels Safe at Home: Yes Safety Concerns: Feels Safe At This Time Smoking Status: Former smoker Tobacco Type: cigarettes ; Cigarettes Per Day: 1 PPD X 30 YEARS ; Do You Dip or Chew Tobacco: No ; Second Hand Exposure: No ; Tobacco Cessation Education Requested by Patient: No Hx Alcohol Use: Yes Hx Substance Use: No Review of Systems Review of Systems: As per HPI, all 10 systems reviewed, all other ROS negative Physical Exam Physical Exam: GENERAL: Comfortable, slightly anxious, obese, no respiratory distress SKIN: Normal color, warm HEENT: [place] palpebral conjunctivae, no ptosis, dry buccal mucosa NECK : Supple, short neck, no tenderness CHEST : CTA, no tenderness HEART : RRR, no obvious murmurs ABDOMEN: Some distention, nontender EXTREMITIES : Minimal LE swelling, no LE tenderness, no other conspicuous deformities noted NEUROLOGIC : Coherent, no facial asymmetry, no other gross focality Results & Data Vital Signs (Past 12 Hours) Vital Signs Temp Pulse Resp BP Pulse Ox 04/04/19 20:50 64 16 96 04/04/19 20:40 66 18 96 04/04/19 20:31 64 18 96 04/04/19 20:30 67 14 142/91 H 97 04/04/19 20:20 65 24 96 04/04/19 20:14 64 22 126/65 96 04/04/19 20:13 63 20 04/04/19 19:59 97 04/04/19 19:50 71 22 04/04/19 19:40 71 21 04/04/19 19:30 72 24 04/04/19 19:28 75 22 04/04/19 19:19 36.7 C 80 16 153/88 H 95 Laboratory Results Laboratory Results WBC 16.49 K/uL (4.8-10.8) H 04/04/19 19:35 RBC 4.26 M/uL (4.2-5.4) 04/04/19 19:35 Hgb 12.8 g/dL (12.0-16.0) 04/04/19 19:35 Hct 40.5 % (37-47) 04/04/19 19:35 MCV 95.1 fL (80-100) 04/04/19 19:35 MCH 30.0 pg (25-34) 04/04/19 19:35 MCHC 31.6 g/dL (32-36) L 04/04/19 19:35 RDW Std Deviation 45.0 fL (36.4-46.3) 04/04/19 19:35 RDW Coeff of Susanne 13.1 % (11.5-14.5) 04/04/19 19:35 Plt Count 222 K/uL (130-400) 04/04/19 19:35 MPV 9.4 fL (7.4-10.4) 04/04/19 19:35 Immature Gran % (Auto) 0.4 % 04/04/19 19:35 Neut % (Auto) 70.3 % 04/04/19 19:35 Lymph % (Auto) 21.3 % 04/04/19 19:35 [place] % (Auto) 6.9 % 04/04/19 19:35 Eos % (Auto) 0.9 % 04/04/19 19:35 Baso % (Auto) 0.2 % 04/04/19 19:35 Immature Gran # (Auto) 0.07 K/uL (0.00-0.02) H 04/04/19 19:35 Neut # (Auto) 11.59 K/uL (1.4-6.5) H 04/04/19 19:35 Lymph # (Auto) 3.52 K/uL (1.2-3.4) H 04/04/19 19:35 [place] # (Auto) 1.13 K/uL (0.11-0.59) H 04/04/19 19:35 Eos # (Auto) 0.15 K/uL (0-0.5) 04/04/19 19:35 Baso # (Auto) 0.03 K/uL (0-0.2) 04/04/19 19:35 PT 10.3 Seconds (9.0-12.0) 04/04/19 19:35 INR 1.0 (0.9-1.1) 04/04/19 19:35 APTT 26.7 Seconds (21.0-31.0) 04/04/19 19:35 PTT Ratio 1.0 04/04/19 19:35 D-Dimer 390 ug/L FEU (0-500) 04/04/19 19:35 Sodium 140 mmol/L (136-145) 04/04/19 19:35 Potassium 3.7 mmol/L (3.5-5.1) 04/04/19 19:35 Chloride 109 mmol/L (98-107) H 04/04/19 19:35 Carbon Dioxide 28 mmol/L (21-32) 04/04/19 19:35 Anion Gap 4.0 (3-11) 04/04/19 19:35 BUN 9 mg/dl (7-18) 04/04/19 19:35 Creatinine 0.81 mg/dl (0.6-1.2) 04/04/19 19:35 Est Cr Clr Drug Dosing 105.4 ml/min 04/04/19 19:35 Est GFR ( Amer) 96.1 04/04/19 19:35 Est GFR (Non-Af Amer) 82.9 04/04/19 19:35 BUN/Creatinine Ratio 10.9 (10-20) 04/04/19 19:35 Glucose 102 mg/dl (70-99) H 04/04/19 19:35 Calcium 8.6 mg/dl (8.5-10.1) 04/04/19 19:35 Total Bilirubin 0.2 mg/dl (0.2-1) 04/04/19 19:35 Direct Bilirubin < 0.1 mg/dl (0-0.2) 04/04/19 19:35 AST 15 U/L (15-37) 04/04/19 19:35 ALT 15 U/L (12-78) 04/04/19 19:35 Alkaline Phosphatase 94 U/L (45-117) 04/04/19 19:35 Troponin I < 0.015 ng/ml (0-0.045) 04/04/19 19:35 Total Protein 7.3 gm/dl (6.4-8.2) 04/04/19 19:35 Albumin 3.1 gm/dl (3.4-5.0) L 04/04/19 19:35 Lipase 151 U/L (73-393) 04/04/19 19:35 Diagnostic Findings Chest/abdomen x-ray : 1. Stable mild cardiomegaly. 2. Unremarkable bowel gas pattern. No evidence for bowel obstruction. EKG as per my interpretation : Rate 70, NSR, normal axis, no ischemia (1) Chest pain Chest pain type: unspecified Qualified Code(s): R07.9 - Chest pain, unspecified
[2019-04-04] MEDS ORDERED: NITROGLYCERIN SL 0.4 MG/TAB TAB ONE (22:03)
[2019-04-04] MEDS ORDERED: modafiniL 100 MG TAB PO PRN (22:36)
[2019-04-04] MEDS ORDERED: TRAMADOL HCL 50 MG TABLET PO PRN (22:36)
[2019-04-04] MEDS ORDERED: LORazepam 0.5 MG/1 ML VIAL IV PRN (22:36)
[2019-04-04] MEDS ORDERED: PROMETHAZINE HCL 12.5 MG in SODIUM CHLORIDE 0.9% 50 ML IV PRN (22:36)
[2019-04-04] MEDS ORDERED: MoRPHine SULFATE 4 MG/ML 1 ML CARP\\VIAL IV PRN (22:36)
[2019-04-04] MEDS ORDERED: LACTATED RINGER'S 1,000 ML IV ONE (22:36)
[2019-04-04] MEDS ORDERED: NITROGLYCERIN SL 0.4 MG/TAB TAB SL PRN (22:36)
[2019-04-04] MEDS ORDERED: ACETAMINOPHEN 325 MG TAB PO PRN (22:36)
[2019-04-05 07:01] LABS: Basophils # (auto) 0.02 K/uL (0-0.2); Basophils % (auto) 0.2 %; Eosinophils # (auto) 0.13 K/uL (0-0.5); Eosinophils % (auto) 1.1 %; Hematocrit (blood only) 40.8 % (37-47); Hemoglobin 12.7 g/dL (12.0-16.0); Immature Granulocytes # (auto) 0.05 K/uL (0.00-0.02); Immature Granulocytes % (auto) 0.4 %; Lymphocytes # (auto) 2.52 K/uL (1.2-3.4); Lymphocytes % (auto) 21.7 %; Mean Corpuscular Hemoglobin 29.3 pg (25-34); Mean Corpuscular Hgb Conc 31.1 g/dL (32-36); Mean Platelet Volume 9.4 fL (7.4-10.4); Monocytes # (auto) 0.63 K/uL (0.11-0.59); Monocytes % (auto) 5.4 %; Neutrophils # (auto) 8.24 K/uL (1.4-6.5); Neutrophils % (auto) 71.2 %; Platelet Count 207 K/uL (130-400); RDW Coefficient of Variation 13.1 % (11.5-14.5); RDW Standard Deviation 45.4 fL (36.4-46.3); Red Blood Count 4.34 M/uL (4.2-5.4); White Blood Count 11.59 K/uL (4.8-10.8)
[2019-04-05 07:09] LABS: Partial Thromboplastin Time 27.4 Seconds (21.0-31.0)
[2019-04-05 07:36] LABS: Calcium 8.5 mg/dl (8.5-10.1); Creatinine Clr Calc Pharmacy 92.8 ml/min; Potassium 4.3 mmol/L (3.5-5.1)
[2019-04-05] MEDS ORDERED: PERFLUTREN LIPID MICROSPHERE (DEFINITY) IV ONE (08:29)
[2019-04-05] MEDS: CITALOPRAM 40 MG TAB PO SCH (08:49)
[2019-04-05] MEDS: MELOXICAM 7.5 MG TAB PO SCH (08:49)
[2019-04-05] MEDS: ASPIRIN 81 MG ECTAB PO SCH (08:50)
[2019-04-05] MEDS: ENOXAPARIN INJ 40 MG/0.4 ML SYR SQ SCH (08:50)
--- NOTE | 2019-04-05 13:04 | Electrocardiogram Report ---
Test Reason : Blood Pressure : / mmHG Vent. Rate : 071 BPM Atrial Rate : 071 BPM P-R Int : 160 ms QRS Dur : 080 ms QT Int : 388 ms P-R-T Axes : 039 045 044 degrees QTc Int : 421 ms Normal sinus rhythm Normal ECG When compared with ECG of 10-FEB-2019 09:35, No significant change was found Confirmed by Anderson Escalante ([id number]) on 04/05/2019 1:04:31 PM Referred By: REFERRED SELF Confirmed By:Anderson Escalante
--- NOTE | 2019-04-05 14:31 | Cardiology Consultation ---
Date of Consultation April 05, 2019 Assessment & Plan (1) Chest pain: Patient has risk factors for coronary heart disease including her age and cigarette smoking. She states that her father who is alive in his 70s has a history of a previous myocardial infarction. Her echocardiogram images are suboptimal and therefore I do not think a dobutamine stress test would be of diagnostic quality. I recommend further risk stratification with a combined low intensity exercise/pharmacologic nuclear stress test which can be performed as an inpatient tomorrow. History of Present Illness Attending Physician: Savanna Foster DO History of Present Illness Caden Lamar is a 53 year old female seen in cardiology consultation per the request of Dr. Gutierrez for evaluation of chest discomfort. Patient states that on Saturday at work she started having left-sided chest discomfort, that continued that evening. During the day on Saturday it was there but to a lesser degree and then worsened again. Per prompting of her family, she came to the emergency room for further evaluation. Her initial EKG revealed normal sinus rhythm without any ST changes. Troponin has been negative x3. Her chest discomfort resolved after the administration of sublingual nitroglycerin last evening, without recurrence in the meantime. She notes that she has been under a lot of stress at work. She smokes 1 pack of cigarettes per day. She cares for her daughter who is 26 years old and has Down syndrome. Allergies Allergy/AdvReac Type Severity Reaction Status Date / Time latex Allergy Mild RASH Verified 04/04/19 19:52 No Known Drug Allergies Allergy Unknown . Verified 04/04/19 19:52 Home Medications Home Medications Medication Instructions Recorded Confirmed Type calcium carbonate 600 mg (1,500 1 tab PO QAM tab 01/04/19 04/04/19 History mg)-vitamin D3 200 unit tablet BiPap Machine #1 ea 01/29/19 03/17/19 History cholecalciferol (vitamin D3) 1,000 unit PO QAM 02/06/19 04/04/19 History [Vitamin D3] hydroxyzine HCl 10 mg PO QID PRN 02/06/19 04/04/19 History meloxicam 15 mg PO QAM 02/06/19 04/04/19 History citalopram 40 mg PO DAILY 04/04/19 04/04/19 History modafinil 200 mg PO DAILY PRN 04/04/19 04/04/19 History Patient History Medical History (Updated 04/04/19 @ 21:24 by Sheryl Stanley) Abnormal vaginal bleeding Anxiety Arthritis Depression (Acute) DJD (degenerative joint disease) (Chronic) Fatigue (Acute) History of postmenopausal bleeding (Acute) Morbid obesity Secondary amenorrhea (Acute) Sleep apnea BIPAP Tobacco abuse (Chronic) Surgical History (Updated 04/04/19 @ 20:11 by Sheryl Stanley) History of (Resolved) History of carpal tunnel release of both wrists History of carpal tunnel surgery (Chronic) Hx of section X2 Hx of cholecystectomy (Resolved) Hx of cholecystectomy Hx of colonoscopy Hx of shoulder surgery Right shoulder arthroplasty (partial): 01/06/15: Grade I view, MAC#3, ETT 7.5 at [facility] Social History (Updated 03/14/19 @ 10:29 by Fabiola Rios) Preferred Language: Sinhala Communication Ability: Effective Business Writer Required: No Beliefs That Will Affect Care: None marital status: Current Living Situation: Family Current Living Situation Comment: DAUGHTER HAS DISABILITY - DOWNS SYNDROME Other Information That Helps Us Care for You: No Feels Safe at Home: Yes Safety Concerns: Feels Safe At This Time Smoking Status: Former smoker Tobacco Type: cigarettes ; Cigarettes Per Day: 1 PPD X 30 YEARS ; Do You Dip or Chew Tobacco: No ; Second Hand Exposure: No ; Tobacco Cessation Education Requested by Patient: No Hx Alcohol Use: Yes Hx Substance Use: No Review of Systems Review of Systems: All systems reviewed & are unremarkable except as noted in HPI & below Physical Exam Physical Exam: Temp Pulse Resp BP Pulse Ox 36.7 C 66 18 124/64 94 04/05/19 12:31 04/05/19 12:31 04/05/19 12:31 04/05/19 12:31 04/05/19 12:31 Constitutional: WD/WN, vitals as above Respiratory: normal respiratory effort, lungs clear to auscultation Cardiovascular: RRR, no murmur, no edema Gastrointestinal (Abdomen): normal bowel sounds, soft, nontender, no hepatosplenomegaly Neurologic: PERRL, EOMI, accommodation nl, no face palsy, no dysarthria Results & Data Vital Signs (Past 12 Hours) Vital Signs Temp Pulse Resp BP Pulse Ox 04/05/19 12:31 36.7 C 66 18 124/64 94 04/05/19 06:49 36.4 C L 64 18 108/50 L 96 04/05/19 02:30 36.7 C 64 19 144/65 H 94 Laboratory Results Cardiac Enzymes 04/04/19 04/04/19 04/05/19 Range/Units 19:35 23:07 06:30 AST 15 (15-37) U/L Troponin I < 0.015 < 0.015 < 0.015 (0-0.045) ng/ml Coagulation 04/04/19 04/05/19 Range/Units 19:35 06:30 PT 10.3 (9.0-12.0) Seconds APTT 26.7 27.4 (21.0-31.0) Seconds Lipids 04/05/19 Range/Units 06:30 Triglycerides 105 (0-150) mg/dl Cholesterol 171 (0-200) mg/dl HDL Cholesterol 33 mg/dl Cholesterol/HDL Ratio 5 LDL, 117 mg/ dl CBC 04/04/19 04/05/19 Range/Units 19:35 06:30 WBC 16.49 H 11.59 H (4.8-10.8) K/uL RBC 4.26 4.34 (4.2-5.4) M/uL Hgb 12.8 12.7 (12.0-16.0) g/dL Hct 40.5 40.8 (37-47) % Plt Count 222 207 (130-400) K/uL Neut # (Auto) 11.59 H 8.24 H (1.4-6.5) K/uL Lymph # (Auto) 3.52 H 2.52 (1.2-3.4) K/uL Thurston # (Auto) 1.13 H 0.63 H (0.11-0.59) K/uL Eos # (Auto) 0.15 0.13 (0-0.5) K/uL Baso # (Auto) 0.03 0.02 (0-0.2) K/uL Comprehensive Metabolic Panel 04/04/19 04/05/19 Range/Units 19:35 06:30 Sodium 140 142 (136-145) mmol/L Potassium 3.7 4.3 D (3.5-5.1) mmol/L Chloride 109 H 109 H (98-107) mmol/L Carbon Dioxide 28 31 (21-32) mmol/L BUN 9 10 (7-18) mg/dl Creatinine 0.81 0.73 (0.6-1.2) mg/dl Glucose 102 H 90 (70-99) mg/dl Calcium 8.6 8.5 (8.5-10.1) mg/dl Direct Bilirubin < 0.1 (0-0.2) mg/dl AST 15 (15-37) U/L ALT 15 (12-78) U/L Alkaline Phosphatase 94 (45-117) U/L Total Protein 7.3 (6.4-8.2) gm/dl Albumin 3.1 L (3.4-5.0) gm/dl Intake and Output 04/04/19 04/05/19 04/05/19 22:59 06:59 14:59 Intake Total 625 / 625 Balance 625 / 625 Intake: Oral 625 / 625 Other: # Unmeasured Voids 1 Weight 136.2 kg 133.7 kg 133.7 kg Patient Weight 04/06/19 06:59 Weight 133.7 kg (1) Chest pain Chest pain type: unspecified Qualified Code(s): R07.9 - Chest pain, unspecified
--- NOTE | 2019-04-05 19:15 | Hospitalist Progress Note ---
Date of Service April 05, 2019 Assessment & Plan (1) Chest pain: Minimal relief with nitroglycerin. Serial cardiac enzymes were negative overnight with a nonischemic EKG. Echocardiogram is pending. Cardiology consult ordered. Continue pain control with as needed medications. (2) Depression: Cymbalta per home regimen (3) Tobacco abuse: Advised to quit as this is terrible for her health and puts her at risk for cardiac disease. (4) DJD (degenerative joint disease): Continue Mobic per home regimen. (5) Morbid obesity: (6) DVT prophylaxis: Lovenox Full Code Dispo-pending cardiology recs. Likely will stay until tomorrow for repeat stress test. Savanna Foster DO [facility] Subjective 53-year-old female presented with chest pain described as a heaviness in her substernal chest. This began while she was at work, which is currently a stressful situation for her. The heaviness persisted at home which was better with some rest and deep breaths. She continued to experience a heaviness upon awakening yesterday and denied any associated symptoms of palpitations, lightheadedness, nausea, shortness of breath. She reports having a stress test in the past that was a chemical stress test and after the test was performed she went home and developed chest pain but otherwise had denies any chest pain in the past. She is obese and has a family history of her father having an SD in his 50s. She is an ongoing smoker. Feels slightly better today but still reporting twinges of chest pain that are fleeting. Review of telemetry revealed sinus rhythm with no evidence of arrhythmia overnight. She is tolerating p.o. Review of Systems Review of Systems: All systems reviewed & are unremarkable except as noted in HPI & below Physical Exam Physical Exam: CONSTITUTIONAL: obesity, vitals as above, generally well- appearing EYES: normal conjunctivae, no scleral icterus ENT: MMM RESPIRATORY: clear to auscultation bilaterally, no crackles, rales or wheezes, normal respiratory effort CARDIOVASCULAR: regular rate and rhythm, S1 and 2 heard without murmurs, gallops or rubs, no JVD, no peripheral edema GASTROINTESTINAL: normal bowel sounds, soft, nontender, nondistended MUSCULOSKELETAL: strength 5/5 throughout, chest wall is TTP, head is normocephalic and atraumatic SKIN: warm and dry NEUROLOGIC: CN 2-12 grossly intact, no sensory deficit, normal cognition, normal speech, no gross focal deficits. PSYCHIATRIC: alert cooperative and oriented to person, place and time. Euthymic mood, makes good eye contact, language grossly intact, recent and remote memory grossly intact. LYMPHATIC: no LAD Results & Data Vital Signs (Past 12 Hours) Vital Signs Temp Pulse Resp BP Pulse Ox 04/05/19 19:05 37.0 C 81 18 105/60 04/05/19 12:31 36.7 C 66 18 124/64 94 Laboratory Results Short CBC 04/04/19 04/05/19 Range/Units 19:35 06:30 WBC 16.49 H 11.59 H (4.8-10.8) K/uL Hgb 12.8 12.7 (12.0-16.0) g/dL Hct 40.5 40.8 (37-47) % Plt Count 222 207 (130-400) K/uL BMP 04/04/19 04/05/19 19:35 06:30 Sodium 140 142 Potassium 3.7 4.3 D Chloride 109 H 109 H Carbon Dioxide 28 31 BUN 9 10 Creatinine 0.81 0.73 Glucose 102 H 90 Calcium 8.6 8.5 Cardiac Enzymes 04/04/19 04/04/19 04/05/19 Range/Units 19:35 23:07 06:30 Troponin I < 0.015 < 0.015 < 0.015 (0-0.045) ng/ml Liver Function 04/04/19 Range/Units 19:35 Total Bilirubin 0.2 (0.2-1) mg/dl Direct Bilirubin < 0.1 (0-0.2) mg/dl AST 15 (15-37) U/L ALT 15 (12-78) U/L Alkaline Phosphatase 94 (45-117) U/L Albumin 3.1 L (3.4-5.0) gm/dl Medications Administered Current Inpatient Medications Acetaminophen (Tylenol) 650 mg PO Q4H PRN PRN Reason: Pain or Fever Stop: 05/04/19 22:35 Aspirin (Ecotrin Ectab) 81 mg PO QAM [facility] Stop: 05/05/19 08:59 Last Admin: 04/05/19 08:50 Dose: 81 mg Documented by: Citalopram Hydrobromide (Celexa) 40 mg PO DAILY [facility] Stop: 05/05/19 08:59 Last Admin: 04/05/19 08:49 Dose: 40 mg Documented by: Enoxaparin Sodium (Lovenox) 40 mg SQ QAM [facility] Stop: 05/05/19 08:59 Last Admin: 04/05/19 08:50 Dose: 40 mg Documented by: Lorazepam (Ativan) 0.5 mg in 1 mls @ 1 mls/min IV Q4H PRN PRN Reason: Anxiety/Agitation Stop: 05/04/19 22:35 Promethazine HCl 12.5 mg/ (Sodium Chloride) 50.5 mls @ 202 mls/hr IV Q6H PRN PRN Reason: Nausea And Vomiting Stop: 05/04/19 22:35 Meloxicam (Mobic) 15 mg PO QAM [facility] Stop: 05/05/19 08:59 Last Admin: 04/05/19 08:49 Dose: 15 mg Documented by: Modafinil (Provigil) 200 mg PO DAILY PRN PRN Reason: Daylight Sleepiness Symptoms Stop: 05/04/19 22:35 Morphine Sulfate (Morphine Sulfate) 4 mg IV Q4H PRN PRN Reason: Pain Stop: 04/18/19 22:35 Nitroglycerin (Nitrostat) 0.4 mg SL UD PRN PRN Reason: Chest Pain Stop: 05/04/19 22:35 Tramadol HCl (Ultram) 25 - 50 mg PO Q4H PRN PRN Reason: Pain Stop: 05/04/19 22:35 (1) Chest pain Chest pain type: unspecified Qualified Code(s): R07.9 - Chest pain, unspecified
[2019-04-06] MEDS: CITALOPRAM 40 MG TAB PO SCH (08:35)
[2019-04-06] MEDS: MELOXICAM 7.5 MG TAB PO SCH (08:36)
[2019-04-06] MEDS: ASPIRIN 81 MG ECTAB PO SCH (08:36)
[2019-04-06] MEDS: ENOXAPARIN INJ 40 MG/0.4 ML SYR SQ SCH (08:37)
[2019-04-06] MEDS ORDERED: REGADENOSON 0.4 MG/5 ML SYR IV ONE (09:45)
[2019-04-06] MEDS ORDERED: ATORVASTATIN 10 MG TAB PO ONE (13:50)
--- NOTE | 2019-04-06 13:59 | Myocardial Perfusion Study ---
Date of Service April 06, 2019 Myocardial Perfusion Study k Myocardial Perfusion Study Report Procedure: 1. Myocardial perfusion study performed in multiple views/images 2. Lexiscan pharmacologic stress ECG Indications: 1. Chest discomfort Ordering physician: Kash Ortiz DO Procedural details: A combined low intensity exercise plus pharmacologic myocardial perfusion imaging stress test protocol was performed. The patient ambulated on the treadmill at 1 mph, 0% incline for 2 minutes prior to and 2 minutes after the administration of Lexiscan and technetium 99m Cardiolite. For the stress portion of the study, Lexiscan 0.4 mg was intravenously administered followed by a saline flush. This was followed by 31.6 mCi of technetium 99m Cardiolite, injected at 11:35 AM on 04/06/2019. 30 minutes following the injection, imaging of the heart was performed in multiple pro jections. For the rest portion of the study, 10.4 mCi technetium 99m Cardiolite was injected intravenously at 9:40 AM on 04/06/2019. 1 hour following the injection, imaging of the heart was performed in the same projections. Lexiscan stress ECG: Resting ECG demonstrated: Sinus rhythm at [address] changes. Maximum heart rate: 129 bpm Maximal, age-predicted heart rate: The resting heart rate of 61 bpm mitchel to a maximum heart rate of 129 bpm. This value represents 77% of the age-predicted maximal heart rate Resting blood pressure: 146/84 mmHg Maximum blood pressure: 146/[address] changes: None Arrhythmia: None Symptoms: Transient headache noted in the post stress recovery interval. Findings: Rotating raw imaging demonstrated no significant lung uptake. There is no significant motion artifact. Heart size appeared normal on both the stress and resting images. A left breast shadow was noted overshadowing the left ventricle on the stress images that was more prominent than on the rest images. The stress SPECT images revealed a small sized perfusion defect of mild intensity limited to the left ventricular apex. The perfusion defect was reversible as compared to the resting images. Gated SPECT images are technically limited due to the patient's body habitus, but were grossly normal, with normal wall motion, normal thickening, and a calculated LVEF of> 70%. Ejection fraction: >70% Wall motion: Normal. No significant transient ischemic dilation. Impression: 1. Mildly abnormal combined exercise/pharmacologic nuclear stress test revealing a small sized reversible perfusion defect of mild intensity limited to 1 myocardial segment, the left ventricular apex. 2. ECG response was normal. 3. Presenting symptom of chest discomfort was not reproduced with the test.
[2019-04-06] MEDS ORDERED: FAMOTIDINE 20 MG TAB PO SCH (14:00)
--- NOTE | 2019-04-06 14:03 | Cardiology Progress Note ---
Date of Service April 06, 2019 Assessment & Plan (1) Chest pain: (2) Tobacco abuse: The patient presented with for 24 hours of waxing and waning chest discomfort that started with emotional distress at her workplace. ECG on presentation was normal, and cardiac enzymes x3 were within normal limits. Nuclear stress test reveals a small sized apical perfusion defect. Given her body habitus, I do have concerns that this stress test result could be artifactual. I discussed options with the patient regarding proceeding with cardiac catheterization versus empiric medical treatment. Medication therapy would certainly be reasonable as the area of concern is limited to the apex. After discussion, patient elects to proceed with trial of medication treatment with close outpatient cardiology follow-up which I think is reasonable. She is to be discharged on aspirin, atorvastatin 10 mg daily, and as needed sublingual nitroglycerin. She has a baseline history of daytime sleepiness for which she takes occasional Provigil, and therefore will not start her on a beta-milly, her heart rate and blood pressure are well controlled at present. Ideally, would like for her to not be on Provigil or meloxicam, but it seems like these medications do help her significantly. Smoking cessation advised, and I believe treatment with nicotine patch is reasonable as the potential benefits of quitting smoking outweigh potential cardiac risks of treatment. Will plan on close outpt follow up with me, I have arranged visit for 04/24/19, at 10:15 am, with me at [facility]. Case discussed with Dr Foster. Subjective Patient seen in follow-up after having had nuclear stress test earlier today. She is feeling well. Denies any chest discomfort, shortness of breath, and her headache that she had experienced with the stress test is resolved. Review of Systems Review of Systems: All systems reviewed & are unremarkable except as noted in HPI & below Physical Exam Physical Exam: Temp Pulse Resp BP Pulse Ox 37.0 C 67 18 125/70 93 04/06/19 07:49 04/06/19 07:56 04/06/19 07:49 04/06/19 07:49 04/06/19 07:49 Constitutional: WD/WN, vitals as above Respiratory: normal respiratory effort, lungs clear to auscultation Gastrointestinal (Abdomen): normal bowel sounds, soft, nontender, no hepatosplenomegaly Neurologic: PERRL, EOMI, accommodation nl, no face palsy, no dysarthria Results & Data Vital Signs (Past 12 Hours) Vital Signs Temp Pulse Pulse Resp BP Pulse Ox 04/06/19 07:56 67 04/06/19 07:49 37.0 C 75 18 125/70 93 04/06/19 03:43 36.7 C 65 19 113/63 95 (1) Chest pain Chest pain type: unspecified Qualified Code(s): R07.9 - Chest pain, unspecified
--- NOTE | 2019-04-06 14:28 | Discharge Summary ---
Date of Service April 06, 2019 Admission HPI Per Admitting Provider History obtained from patient and records. Medical history significant for OHS on BiPAP, GERD, anxiety/mood disorder, ongoing tobacco abuse. Recent confinement under orthopedic service December 2014 for right shoulder surgery. 2 days history of substernal discomfort described as heaviness with some shortness of breath, nonpleuritic, dry cough symptoms. No radiation. Intermittent symptoms. Not related to exertion as per patient. Patient admits to some work stress more than usual. At the ER, some improvement of discomfort with nitro administration. Medical History as above Surgical History : Carpal tunnel surgery, cholecystectomy, shoulder surgery, section Family History : Heart disease, Down syndrome Personal/Social history : 1 pack daily, occasional EtOH intake, office work Admission Exam Per Admitting Provider GENERAL: Comfortable, slightly anxious, obese, no respiratory distress SKIN: Normal color, warm HEENT: [place] palpebral conjunctivae, no ptosis, dry buccal mucosa NECK : Supple, short neck, no tenderness CHEST : CTA, no tenderness HEART : RRR, no obvious murmurs ABDOMEN: Some distention, nontender EXTREMITIES : Minimal LE swelling, no LE tenderness, no other conspicuous deformities noted NEUROLOGIC : Coherent, no facial asymmetry, no other gross focality Principal Diagnosis Chest pain Tobacco use Discharge Data Allergies Allergy/AdvReac Type Severity Reaction Status Date / Time latex Allergy Mild RASH Verified 04/04/19 19:52 No Known Drug Allergies Allergy Unknown . Verified 04/04/19 19:52 Consultations 04/04/19 21:13 ED Decision to Admit Stat 04/04/19 22:36 Consult Cardiology Routine Hospital Course (1) Chest pain: Minimal relief with nitroglycerin. Serial cardiac enzymes were negative overnight with a nonischemic EKG. Echocardiogram revealed no significant s tenoses and Lexiscan stress test was performed, however, the study was technically limited and was equivocal. Cardiology was consulted and felt that she could go either way with either cardiac catheterization or medical therapy. As medical therapy with close followup still was reasonable, they opted for this approach. (2) Depression: Cymbalta per home regimen (3) Tobacco abuse: Advised to quit as this is terrible for her health and puts her at risk for cardiac disease. (4) DJD (degenerative joint disease): Continue Mobic per home regimen. (5) Morbid obesity: At time of discharge she was hemodynamically stable and afebrile and tolerating PO. She reported symptoms had improved since admission. She was mentating and ambulating at baseline and close primary care follow-up was recommended. Total Time Total Time Spent Total Time Spent (In Minutes): 60 Total Time Includes: Examination of the Patient, Discharge Planning, Medication Reconciliation and Communication With Other Providers Discharge Plan Discharge Items Patient Disposition: Home - Self-Care Reason For Visit: CP Discharge Diagnosis: Chest pain Tobacco use Health Concerns: Smoking cessation Activity: Resume your previous activity Non-emergency contact: Primary Care Provider Call non-emergency contact if: you have any medication questions, your symptoms worsen, your pain is not controlled, your pain is worsening, your pain is unusual for you, your pain is concerning for you and you have a fever Follow-up/Referrals: Caryn Palmer DO [Primary Care Provider] - Diet: Heart Healthy Addtl Attending Provider Instructions: Please take all medications as instructed on discharge list below. You are being given nitroglycerin to take. Please dissolve one tablet under your tongue if you have chest pain. You may repeat this every 5 minutes up to 3 doses. If pain is not resolved, please seek immediate medical attention. You have the following appointments scheduled: 04/09/2019 11:20 AM Caryn Palmer DO [facility] 04/24/2019 10:30 AM [facility] It is strongly recommended that you quit smoking. Please work with your primary care physician regarding step down in patch dosing as able. It was a pleasure taking care of you! Please call if you have any questions or problems. You can reach a [facility] hospitalist on duty at [facility] 24 hours a day by calling [phone]. Take care of yourself. Savanna Foster DO [facility] Hospitalist Pending Studies at Discharge: No Stand-Alone Forms: Call Back Authorization, My [facility], Smoking Cessation Medications and DC Order Prescriptions: New atorvastatin 10 mg Tablet 10 mg PO QAM Qty: 60 RF: 1 nitroglycerin [Nitrostat] 0.4 mg Tablet, Sublingual 0.4 mg sublingual UD PRN (Reason: chest pain) Qty: 30 RF: 1 aspirin [Ecotrin Low Strength] 81 mg Tablet,Delayed Release (Dr/Ec) 81 mg PO QAM Qty: 90 RF: 1 nicotine [Nicoderm CQ] 21 mg/24 hr patch 24 hour 1 patch TD DAILY Qty: 14 RF: 1 Continued calcium carbonate-vitamin D3 600 mg(1,500mg) -200 unit tablet 1 tab PO QAM RF: 0 (DME) BiPap Machine Misc See Dose Instructions .ROUTE .MEDSUPPLY Qty: 1 RF: 0 cholecalciferol (vitamin D3) [Vitamin D3] 1,000 unit Capsule 1,000 unit PO QAM RF: 0 meloxicam 15 mg Tablet 15 mg PO QAM RF: 0 hydroxyzine HCl 10 mg Tablet 10 mg PO QID PRN (Reason: Itching) RF: 0 citalopram 40 mg tablet 40 mg PO DAILY RF: 0 modafinil 200 mg tablet 200 mg PO DAILY PRN (Reason: Daylight Sleepiness Symptoms) RF: 0 Discharge Orders: Discharge Order (Routine); Ordered 04/06/19 Ordered By: Savanna Goldstein/Other Patient Handouts: Atorvastatin Calcium Oral tablet, Nitroglycerin Sublingual tablet, Aspirin Oral tablet Admission Data Admit Date/Time: 04/04/19 21:56 Attending Provider: Savanna Fostre Admit Provider: Savanna Foster Primary Care Provider: Caryn Palmer Other Providers: Sukumar Baez ; Joseluis Mathew Other Interventions: Discharge Summary Assessment (RN) Last Done: 04/06/19 14:40 DC Date/Time DO NOT enter until pt leaves facility: 04/06/19 15:42
[2019-04-07] MEDS ORDERED: ATORVASTATIN 10 MG TAB PO SCH (09:00)
== END 2019-04-06 15:42 | disposition home or self-care (01) ==
LOC: ED 19:17 → 2S 19:17